=== PATIENT | male | born 1995 | race Caucasian/White ===

== ENCOUNTER 2021-03-13 21:30 | Emergency (ER) | payer OTHER ==
[~2021-03-13] VITALS: Ht 190.5 cm; Wt 72.6 kg
[2021-03-13] MEDS ORDERED: OCUFLOX5 ML OTIC (22:34)
[2021-03-13 23:03] VITALS: BP 111/55
== END 2021-03-13 23:00 | disposition home or self-care (01) ==
LOC: ER 21:30
DX: H60.501 Unspecified acute noninfective otitis externa, right ear (principal); H92.02 Otalgia, left ear; R59.0 Localized enlarged lymph nodes; Z88.0 Allergy status to penicillin